=== PATIENT | male | born 1955 | race Caucasian/White ===

== ENCOUNTER 2024-02-07 05:50 | Observation (INO) ==
--- NOTE | 2023-11-30 10:18 | PAT Medication Instructions ---
Medication Instructions Date of Service November 30, 2023 Home Medications acetaminophen 500 mg tablet 1,000 mg PO BID amlodipine 10 mg tablet 10 mg PO QAM aspirin 81 mg tablet,delayed release 81 mg PO QAM atorvastatin 80 mg tablet 80 mg PO PM carvedilol 12.5 mg tablet 12.5 mg PO BID cholecalciferol (vitamin D3) 125 mcg (5,000 unit) tablet (Vitamin D3) 125 mcg PO QAM dapagliflozin propanediol 10 mg tablet 10 mg PO QPM dimethyl fumarate 240 mg capsule,delayed release (Tecfidera) 240 mg PO BID ezetimibe 10 mg tablet 10 mg PO HS furosemide 20 mg tablet 20 mg PO QAM gabapentin 800 mg tablet 800 mg PO BID insulin lispro 100 unit/mL subcutaneous cartridge (Humalog U-100 Insulin) 1 sli ding scale dose subcut USEASDIRECTD lisinopril 40 mg tablet 40 mg PO QAM metformin 1,000 mg tablet 1,000 mg PO BID multivitamin 1 tab PO QAM omega 7-bjr-avw-fish oil 1,000 mg (120 mg-180 mg) capsule (Fish Oil) 1 cap PO QPM semaglutide 2 mg/dose (8 mg/3 mL) subcutaneous pen injector (Ozempic) 2 mg subcut WK topiramate 50 mg tablet 50 mg PO BID tramadol 50 mg tablet 100 mg PO BID venlafaxine 75 mg tablet 75 mg PO QAM vitamin B complex 1 tab PO QAM STOP 7 days before surgery semaglutide 2 mg/dose (8 mg/3 mL) subcutaneous pen injector (Ozempic) 2 mg subcut WK STOP 3 days before surgery dapagliflozin propanediol 10 mg tablet 10 mg PO QPM ASK your prescriber and surgeon aspirin 81 mg tablet,delayed release 81 mg PO QAM dimethyl fumarate 240 mg capsule,delayed release (Tecfidera) 240 mg PO BID STOP taking 2 weeks before surgery (or as soon as possible if surgery is within 2 weeks) omega 5-mnn-qqu-fish oil 1,000 mg (120 mg-180 mg) capsule (Fish Oil) 1 cap PO QPM DO NOT take the morning of surgery cholecalciferol (vitamin D3) 125 mcg (5,000 unit) tablet (Vitamin D3) 125 mcg PO QAM furosemide 20 mg tablet 20 mg PO QAM insulin lispro 100 unit/mL subcutaneous cartridge (Humalog U-100 Insulin) 1 sliding scale dose subcut lisinopril 40 mg tablet 40 mg PO QAM metformin 1,000 mg tablet 1,000 mg PO BID multivitamin 1 tab PO QAM vitamin B complex 1 tab PO QAM Take morning of surgery With a small sip of water, OTHERWISE NOTHING TO EAT OR DRINK AFTER MIDNIGHT: acetaminophen 500 mg tablet 1,000 mg PO BID amlodipine 10 mg tablet 10 mg PO QAM carvedilol 12.5 mg tablet 12.5 mg PO BID gabapentin 800 mg tablet 800 mg PO BID topiramate 50 mg tablet 50 mg PO BID tramadol 50 mg tablet 100 mg PO BID venlafaxine 75 mg tablet 75 mg PO QAM Take evening before surgery acetaminophen 500 mg tablet 1,000 mg PO BID atorvastatin 80 mg tablet 80 mg PO PM carvedilol 12.5 mg tablet 12.5 mg PO BID ezetimibe 10 mg tablet 10 mg PO HS gabapentin 800 mg tablet 800 mg PO BID metformin 1,000 mg tablet 1,000 mg PO BID topiramate 50 mg tablet 50 mg PO BID tramadol 50 mg tablet 100 mg PO BID Other Notes If you have any questions please call us at [phone] or [phone] or [phone] or [phone]
--- NOTE | 2023-12-06 09:38 | Anesthesiology Consultation ---
Date of Service December 06, 2023 Assessment & Plan (1) Encounter for pre-operative examination: - Check BSG AM DOS - Infectious disease screening: Per assessment on 12/06/23: No known recent infectious disease contacts or current infectious disease symptoms. - Semaglutide instructions: Patient informed by PAT to stop 7 days prior to surgery- voiced understanding. DOS 12/15/23. Advised last dose to be 12/02/23. - Cardiology visit/note (11/24/23): "..from a cardiovascular standpoint low risk for upcoming surgery.. Patient is cleared for scheduled surgery" - Patient acceptable risk for surgery pending surgeon-ordered PCP preop evaluation (Yobani Yang MAST MAKER, appt 12/08). Chart Review Chart Review: Patient seen in Pre Admission Testing Teaching & Discussion Pre-Anesthesia Teaching/Discussion Notes: Instructed NPO after midnight before surgery,except medications with 15 cc of water. Medication instructions provided according to the PAT guidelines. History Surgery Operation Date: 12/15/23 07:45 Proposed Procedures p L3-L4 Decomrpession, Spinal Cord Monitoring - Bakari Sampson DO Height/Weight Height: 5 ft 11 in Weight: 138.9 kg Allergies Allergy/AdvReac Type Severity Reaction Status Date / Time No Known Allergies Allergy Verified 11/24/23 13:15 Medications Home Medications Medication Instructions Recorded Confirmed Last Taken acetaminophen 500 mg tablet 1,000 mg PO BID 11/24/23 11/24/23 Unknown amlodipine 10 mg tablet 10 mg PO QAM 11/24/23 11/24/23 Unknown aspirin 81 mg tablet,delayed 81 mg PO QAM 11/24/23 11/24/23 Unknown release atorvastatin 80 mg tablet 80 mg PO PM 11/24/23 11/24/23 Unknown carvedilol 12.5 mg tablet 12.5 mg PO BID 11/24/23 11/24/23 Unknown cholecalciferol (vitamin D3) 125 125 mcg PO QAM 11/24/23 11/24/23 Unknown mcg (5,000 unit) tablet (Vitamin D3) dapagliflozin propanediol 10 mg 10 mg PO QPM 11/24/23 11/24/23 Unknown tablet dimethyl fumarate 240 mg 240 mg PO BID 11/24/23 11/24/23 Unknown capsule,delayed release (Tecfidera) ezetimibe 10 mg tablet 10 mg PO HS 11/24/23 11/24/23 Unknown furosemide 20 mg tablet 20 mg PO QAM 11/24/23 11/24/23 Unknown gabapentin 800 mg tablet 800 mg PO BID 11/24/23 11/24/23 Unknown insulin lispro 100 unit/mL 1 sliding scale dose subcut 11/24/23 11/24/23 Unknown subcutaneous cartridge (Humalog USEASDIRECTD U-100 Insulin) lisinopril 40 mg tablet 40 mg PO QAM 11/24/23 11/24/23 Unknown metformin 1,000 mg tablet 1,000 mg PO BID 11/24/23 11/24/23 Unknown multivitamin 1 tab PO QAM 11/24/23 11/24/23 Unknown omega 3-mzi-fvh-fish oil 1,000 mg 1 cap PO QPM 11/24/23 11/24/23 Unknown (120 mg-180 mg) capsule (Fish Oil) semaglutide 2 mg/dose (8 mg/3 mL) 2 mg subcut WK 11/24/23 11/24/23 11/18/23 subcutaneous pen injector (Ozempic) topiramate 50 mg tablet 50 mg PO BID 11/24/23 11/24/23 Unknown tramadol 50 mg tablet 100 mg PO BID 11/24/23 11/24/23 Unknown venlafaxine 75 mg tablet 75 mg PO QAM 11/24/23 11/24/23 Unknown vitamin B complex 1 tab PO QAM 11/24/23 11/24/23 Unknown Past Medical History Medical History Aortic stenosis "Moderate" on 2021 echo per available cardio records CAD (coronary artery disease) 2017 > stents x 2 Follows with cardio/Dr. Chadwick Adan (provider just moved from [facility] to [place]) Depression with anxiety Diabetes mellitus, type 2 History of COVID-19 01/2020 > PE HTN (hypertension) Hx pulmonary embolism In setting of Covid-19 (01/2020) Morbid obesity Multiple sclerosis 1997, stable Sleep apnea No device Uses self-applied continuous glucose monitoring device FreeStyle Rene 2 and V-Go for administration Exercise / Class Metabolic Activity III < 4 Walking/Shop/Light housework (uses cane PRN) Past Surgical History Surgical History Hx of cardiac catheterization 2017 > stents x 2 Hx of colonoscopy Hx of esophagogastroduodenoscopy Hx of tonsillectomy Hx of total knee replacement right Past Anesthesia History No Hx of Anesthesia Complications and No Family Hx of Anesthesia Complications History of PONV No Hx of PONV and No Hx of Motion Sickness Social History Smoking Status: Never smoker Do You Dip or Chew Tobacco: No Hx Alcohol Use: No Hx Substance Use: No substance use type: does not use Review of Systems Patient denies chest pain, shortness of breath, dyspnea on exertion, fever, chills, cough, wheezing, palpitations. Physical Exam Vital Signs BP 106/63 P 63 TEMP 97.5 SP02 96%RA RESP 16 Physical Full cervical extension range of motion. Full TMJ range of motion. TMD > 3.5 finger breaths Mallampati Score I Dentition: upper/lower full dentures ("doesn't wear") Lungs: clear throughout to auscultation Cardiac: regular rate and rhythm, no murmurs noted Spine: normal Carotid arteries: negative bruit Extremities: no LE edema Lab Results Anesthesia Preop Results Results Anesthesia Widget: WBC 8.22 K/ul (4.8-10.8) 12/06/23 Hgb 13.6 g/dl (14.0-18.0) L 12/06/23 Hct 40.3 % (42.0-52.0) L 12/06/23 Plt 232 K/uL (130-400) 12/06/23 Na 139 mmol/L (136-145) 12/06/23 K 3.7 mmol/L (3.5-5.1) 12/06/23 Cl 105 mmol/L (98-107) 12/06/23 CO2 27 mmol/L (21-32) 12/06/23 BUN 14 mg/dl (6-23) 12/06/23 Creat 0.90 mg/dl (0.6-1.4) 12/06/23 Glucose Level 99 mg/dl (70-99(Fasting)) 12/06/23 PT 10.5 Seconds (9.0-12.0) 12/06/23 PTT 27 Seconds (21-31) 12/06/23 INR 1.0 (0.9-1.1) 12/06/23 HA1c 7.3 % (4.5-5.6) H 12/06/23 Blood Type O Positive 12/06/23 Antibody Screen NEGATIVE 12/06/23 Testing Electrocardiogram Date: 11/24/23 SR at 70bpm. No change from 01/29/2023 per churn driller helper comparison. Chest X-Ray Date: 12/06/23 FINDINGS: PA and lateral chest radiographs are obtained. No prior studies are available for comparison at the time of dictation. The heart is enlarged noting atherosclerotic calcification of the thoracic aorta. The pulmonary vasculature is noncongested. Chronic interstitial thickening this is similar to previous. There is mild bibasilar scarring/atelectasis. The lungs and pleural spaces are otherwise clear. There is no pneumothorax. The skeletal structures are osteopenic. The bony thorax appears intact. IMPRESSION: Cardiomegaly with no active disease in the chest.
[~2024-02-07 05:50] MED LIST: ACETAMINOPHEN 500 MG TAB PO SCH; CeleBREX 200 MG CAP PO SCH; GABAPENTIN 300 MG CAP PO SCH; LR 15ML/HR IV SCH; LR 60ML/HR IV SCH; ceFAZolin 3000MG 3,000 MG/72.5 ML BAG IV SCH
[2024-02-07] MEDS: LR 60ML/HR IV SCH (06:47)
[2024-02-07] MEDS: GABAPENTIN 300 MG CAP PO SCH (06:47)
[2024-02-07] MEDS: ACETAMINOPHEN 500 MG TAB PO SCH (06:51)
[2024-02-07] MEDS: LR 15ML/HR IV SCH (06:51)
[2024-02-07] MEDS: CeleBREX 200 MG CAP PO SCH (06:51)
[2024-02-07] MEDS ORDERED: LIDOCAINE 2% 2 ML VIAL/AMP(20MG/ML) INFIL ONE ×2 (06:54)
[2024-02-07] MEDS ORDERED: MIDAZOLAM HCL 1 MG/ML 2ML VIAL ONE (06:54)
[2024-02-07] MEDS ORDERED: PROPOFOL IV EMULSION 10 MG/ML 20 ML VIAL IV ONE (06:54)
[2024-02-07] MEDS ORDERED: ONDANSETRON INJ 2 MG/ML 2 ML VIAL ONE (06:54)
[2024-02-07] MEDS ORDERED: ROCURONIUM BROMIDE 10 MG/ML 5 ML VIAL IV ONE ×5 (06:54)
[2024-02-07] MEDS ORDERED: DEXAMETHASONE SOD INJ 4 MG/ML VIAL ONE (06:54)
[2024-02-07] MEDS ORDERED: fentaNYL citrate PF 100 MCG/2 ML VIAL ONE (06:54)
--- NOTE | 2024-02-07 07:39 | History & Physical Bridge Note ---
Date of Service February 07, 2024 History & Physical Bridge Note I have examined the patient, reviewed the History & Physical and in the interval since the performance of the History & Physical I have noted the following changes of clinical significance: no changes noted
--- NOTE | 2024-02-07 07:40 | History & Physical Report ---
Date of Service February 07, 2024 Assessment & Plan (1) Neurogenic claudication due to lumbar spinal stenosis: Plan: L3-L4 decompression History of Present Illness Chief Complaint: Back and leg pain Primary Care Provider: NO PCP This is a 60-year-old male who presents for chronic persistent back and leg pain after failing course of nonoperative care is here for surgical intervention. Allergies Allergy/AdvReac Type Severity Reaction Status Date / Time No Known Allergies Allergy Verified 02/07/24 06:31 Home Medications Medication Instructions Recorded Confirmed Type acetaminophen 500 mg tablet 1,000 mg PO BID PRN Pain 11/24/23 02/07/24 History amlodipine 10 mg tablet 10 mg PO QAM 11/24/23 02/07/24 History aspirin 81 mg tablet,delayed 81 mg PO QAM 11/24/23 02/07/24 History release atorvastatin 80 mg tablet 80 mg PO PM 11/24/23 02/07/24 History carvedilol 12.5 mg tablet 12.5 mg PO BID 11/24/23 02/07/24 History cholecalciferol (vitamin D3) 125 125 mcg PO QAM 11/24/23 02/07/24 History mcg (5,000 unit) tablet (Vitamin D3) dapagliflozin propanediol 10 mg 10 mg PO QPM 11/24/23 02/07/24 History tablet (Farxiga) dimethyl fumarate 240 mg 240 mg PO BID 11/24/23 02/07/24 History capsule,delayed release (Tecfidera) ezetimibe 10 mg tablet 10 mg PO HS 11/24/23 02/07/24 History furosemide 20 mg tablet 20 mg PO QAM 11/24/23 02/07/24 History gabapentin 800 mg tablet 800 mg PO BID 11/24/23 02/07/24 History insulin lispro 100 unit/mL 1 sliding scale dose subcut 11/24/23 02/07/24 History subcutaneous cartridge (Humalog USEASDIRECTD U-100 Insulin) lisinopril 40 mg tablet 40 mg PO QAM 11/24/23 02/07/24 History metformin 1,000 mg tablet 1,000 mg PO BID 11/24/23 02/07/24 History multivitamin 1 tab PO QAM 11/24/23 02/07/24 History omega 5-sva-adj-fish oil 1,000 mg 1 cap PO QPM 11/24/23 02/07/24 History (120 mg-180 mg) capsule (Fish Oil) topiramate 50 mg tablet 50 mg PO BID 11/24/23 02/07/24 History tramadol 50 mg tablet 100 mg PO BID 11/24/23 02/07/24 History venlafaxine 75 mg tablet 75 mg PO QAM 11/24/23 02/07/24 History vitamin B complex 1 tab PO QAM 11/24/23 02/07/24 History Past Med/Surg History Problem List (Updated 02/07/24 @ 07:40 by Bakari Sampson DO) Neurogenic claudication due to lumbar spinal stenosis Medical History (Updated 02/07/24 @ 07:40 by Bakari Sampson DO) Aortic stenosis "Moderate" on 2021 echo per available cardio records CAD (coronary artery disease) 2017 > stents x 2 Follows with cardio/Dr. Chadwick Adan (provider just moved from [facility] to [place]) Morbid obesity Multiple sclerosis 1997, stable Uses self-applied continuous glucose monitoring device FreeStyle Rene 2 and V-Go for administration Diabetes mellitus, type 2 Depression with anxiety HTN (hypertension) Hx pulmonary embolism In setting of Covid-19 (01/2020) History of COVID-19 01/2020 > PE *resolved Sleep apnea No device Surgical History History of tooth extraction Hx of tonsillectomy Hx of total knee replacement right Hx of esophagogastroduodenoscopy Hx of colonoscopy Hx of cardiac catheterization 2017 > stents x 2 (followed by Chadwick Adan) Family History (Updated 02/03/24 @ 09:10 by Rachelle Muñoz RN) Other No family history of adverse response to anesthesia Social History Smoking Status: Never smoker Second Hand Exposure: Yes (as a child); Do You Dip or Chew Tobacco: No; Tobacco Cessation Education Requested by Patient: No Hx Alcohol Use: No Preferred Language: Mongolian Communication Ability: Effective Category Director Required: No Beliefs That Will Affect Care: None Current Living Situation: Spouse Other Information That Helps Us Care for You: No Feels Safe at Home: Yes Safety Concerns: Feels Safe At This Time Assistive Devices: Cane, Denture - Upper, Denture - Lower and Glasses Assistive Devices Comment: "usually do not wear dentures" Physical Exam Physical Exam: Patient is alert and oriented heart regular in rhythm Lungs clear Results & Data Results & Data Vital Signs (Past 12 Hours) Vital Signs Temp Pulse Resp BP Pulse Ox O2 Del Method 02/07/24 06:24 36.5 C 55 L 20 119/62 93 Room Air
[2024-02-07] MEDS ORDERED: ePHEDrine sulfate 50 MG/ML AMP IV PRN (07:50)
[2024-02-07] MEDS ORDERED: ONDANSETRON INJ 2 MG/ML 2 ML VIAL IV PRN ×2 (07:50→09:51)
[2024-02-07] MEDS ORDERED: HYDROmorphone INJ 2 MG/ML SYR/VIAL IV PRN (07:50)
[2024-02-07] MEDS ORDERED: PROMETHAZINE HCL 6.25 MG in SODIUM CHLORIDE 0.9% 50 ML IV PRN (07:50)
[2024-02-07] MEDS: ceFAZolin 3000MG 3,000 MG/72.5 ML BAG IV SCH (07:50)
[2024-02-07] MEDS ORDERED: ATROPINE SULFATE 0.1 MG/ML 10ML SYR IV PRN (07:50)
[2024-02-07] MEDS ORDERED: SUGAMMADEX SODIUM 200 MG/2 ML VIAL IV ONE (08:09)
[2024-02-07] MEDS ORDERED: ePHEDrine sulfate 50 MG/5 ML SYR ONE (08:12)
[2024-02-07] MEDS ORDERED: PHENYLEPHRINE HCL 10 MG/ML VIAL ONE ×2 (08:12)
[2024-02-07] MEDS: BUPIVACAINE/EPINEPHRINE 0.5% MPF 1:200,000 30 ML VIAL ONE (08:14)
[2024-02-07] MEDS: ceFAZolin 330 MG/ML 1 GM VIAL ONE (08:36)
[2024-02-07] MEDS: FLOSEAL HEMOSTATIC MATRIX 10ML TOP ONE (08:36)
--- NOTE | 2024-02-07 08:47 | Operative Report ---
Post Operative Report Pre & Post Diagnosis Operation Date: 02/07/24 07:45 Pre-Op Diagnosis: #1 neurogenic claudication due to lumbar spinal stenosis #2 epidural lipomatosis #3 morbid obesity Post-Op Diagnosis: Same I identified the patient and participated in the time-out.: Yes Procedure Operation Date: 02/07/24 07:45 Actual Procedures #1 lumbar decompression with bilateral medial facetectomies with removal of epidural lipomatosis L3-L4. #2 application of versa wrap over the exposed dura at L3-L4. Surgeon Bakari Sampson, DO Ampoule Washing Machine Operator Katey Cool Estimated Blood Loss 100 Findings See Below The patient is 5 foot 11 weighing over 138 kg with a BMI in excess of 42. The patient's body mass did contribute to significant technical difficulty with positioning exposure and the procedure itself adding at least 50% increased operative time. Specimens None Indications This is a 68-year-old male presents problems diagnosis of failed course of nonoperative care is here for surgical invention. Description of Procedure Patient was met with identified informed consent obtained. Patient was then taken to the operative suite underwent intubation placed in a prone position on the Enrique table atop the Anjel frame. All bony prominences well-padded eyes inspected to ensure no external pressure placed upon the. This point the lumbar spine was prepped and draped in normal sterile fashion. With assistance of fluoroscopy notified L3-L4 disc space. Sharp dissection with assistance of Bovie cautery form down to and exposing the lamina of L3. Then performed a midline decompression with bilateral medial facetectomies and evacuation of epidural lipomatosis. This created significant decompression. Versa wrap was then placed over the exposed dura. 10 round SARITHA drain inserted. Incision closed with 1 Vicryl the fascia 2-0 Vicryl subcutaneously and 4 Monocryl for final skin closure. Steri-Strips sterile dressing placed. Patient waken taken PACU stable condition. Please note Katey Cool was present out the entire procedure involved patient positioning complex portions of the surgery and final skin closure. Im ordering 20 grams of Triple [place] Collagen Powder ([employer] [id number]) to treat an incision wound that was caused by a spine procedure. The incision is approximately 2 cm(W) x 4 cm(L) into the joint (D) in size and is a full thickness wound. Triple [place] collagen comes in 1 gram packets so 20 packets were ordered. Given the size of the wound, with light to moderate exudate I chose to order a 20 day supply. The patient will be provided instructions for proper application of the collagen wound kit. The patient will be asked to apply the collagen powder daily and then cover it with sterile dressings dispensed. Collagen was selected as I expect the collagen to attract monocytes and fibroblasts, act as a sacrificial substrate for MMPs, and ultimately proved a matrix for tissue and vessel growth. The collagen will act as a primary dressing in this scenario. It is medically necessary for proper healing of these wounds to improve bioavailability and contact with each wound surface, this is also to help prevent infection of wounds and promote healing ultimately leading to a better healing outcome and limit the risk of infection. I attest to the content of the Intraoperative Record and any orders documented therein. Any exceptions are noted below.
--- NOTE | 2024-02-07 09:04 | Fluoroscopy Report ---
FL lumbar spine 2-3V CLINICAL HISTORY: L3-L4 DECOMPRESSION AND FUSION COMPARISON STUDY: None. FLUOROSCOPY TIME: 3 seconds. Ka,r: 3.09 mGy FLUOROSCOPIC IMAGES: 1 FINDINGS: Single lateral intraoperative fluoroscopic image demonstrates surgical instrument directed over the posterior elements of L4. Linear radiodensity within the operative bed is noted. IMPRESSION: Single lateral intraoperative fluoroscopic image demonstrating surgical instrument direc leila over the posterior elements of L4. ACT 112: Negative or not required by law. Electronically signed by: Yemi Ann M.D. 02/07/2024 9:02 AM
[2024-02-07] MEDS: fentaNYL citrate PF 100 MCG/2 ML VIAL IV PRN (09:22)
[2024-02-07] MEDS ORDERED: HYDROmorphone INJ 0.5 MG/0.5 ML SYR IV PRN (09:51)
[2024-02-07] MEDS ORDERED: MAGNESIUM HYDROXIDE SUSP 30 ML UDC PO PRN (09:51)
[2024-02-07] MEDS ORDERED: FAMOTIDINE 20 MG TAB PO PRN (09:51)
[2024-02-07] MEDS ORDERED: SOD PHOSPHATE/SOD BIPHOSPHATE ENEMA 132 ML BTL PR PRN (09:51)
[2024-02-07] MEDS ORDERED: LORazepam 2 MG/1 ML VIAL IV PRN (09:51)
[2024-02-07] MEDS ORDERED: traMADol HCL 50 MG TABLET PO PRN (09:51)
[2024-02-07] MEDS ORDERED: PROMETHAZINE 12.5 MG/50.5 ML BAG IV PRN (09:51)
[2024-02-07] MEDS ORDERED: METOCLOPRAMIDE HCL INJ 5 MG/ML 2 ML VIAL IV PRN (09:51)
[2024-02-07] MEDS ORDERED: diphenhydrAMINE Capsule 25 MG CAP PO PRN (09:51)
[2024-02-07] MEDS ORDERED: ONDANSETRON 4 MG OD TAB PO PRN (09:51)
[2024-02-07] MEDS ORDERED: DO NOT ADMINISTER FLU VACCINE PRN (09:51)
[2024-02-07] MEDS ORDERED: hydrOXYzine HCl 25 MG TAB PO PRN (09:51)
[2024-02-07] MEDS ORDERED: NALOXONE HCL 0.4 MG/1 ML VIAL/CARP IV PRN (09:51)
[2024-02-07] MEDS ORDERED: LORazepam 0.5 MG TAB PO PRN (09:51)
[2024-02-07] MEDS ORDERED: DO NOT ADMINISTER PNEUMOCOCCAL VACCINE PRN (09:51)
[2024-02-07] MEDS ORDERED: ACETAMINOPHEN 500 MG TAB PO PRN (09:51)
[2024-02-07] MEDS ORDERED: ACETAMINOPHEN 1,000 MG/100 ML VIAL IV PRN (09:51)
[2024-02-07] MEDS ORDERED: PHARMACY GLYCEMIC MGMT CONSULT PRN (09:51)
[2024-02-07] MEDS ORDERED: bisacodyL 10 MG SUPP PR PRN (09:51)
[2024-02-07] MEDS ORDERED: ALUMINUM/MAGNESIUM SUSP 30 ML UDC PO PRN (09:51)
--- NOTE | 2024-02-07 10:18 | Hospitalist Consultation ---
Date of Consultation February 07, 2024 Assessment & Plan (1) Neurogenic claudication due to lumbar spinal stenosis: (2) Aortic stenosis: (3) CAD (coronary artery disease): (4) HTN (hypertension): (5) Hx pulmonary embolism: (6) Diabetes mellitus, type 2: (7) Multiple sclerosis: (8) Morbid obesity: (9) Sleep apnea: (10) Depression with anxiety: Plan Status post lumbar decompression surgery from L3-L4 by Dr. Sampson on 02/07/2024 Neurogenic claudication due to lumbar spinal stenosis -Postop day #0 -Trend a.m. labs to monitor for acute blood loss anemia, last hemoglobin 13.6 on 12/06/2023 - Pain management, bowel regimen and DVT ppx per the primary team - PT/OT consults, pt is planning on outpatient therapy upon discharge home CAD HTN HLD -Continue home medications including carvedilol, atorvastatin, aspirin, Lasix, lisinopril, ezetimibe DM type II -ISS with Accu-Cheks ACHS while here -Continue heart healthy diabetic diet -Patient is on metformin, semaglutide, Farxiga as outpatient -Glycemic pharmacy is consulted by primary team Multiple sclerosis -Has been chronic and stable since 1997, Does not take any biological agents, reports that his 3 children have varying degrees of MS. Morbid obesity -BMI of 43, will benefit from diet and exercise status post surgical procedure, encouraged weight loss for wound healing/joint offloading Sleep apnea -Patient reports that he does not use CPAP at bedtime, no needs for baseline O2 during the day Depression with anxiety -Continue on venlafaxine, gabapentin, topiramate DVT ppx: teds, scds Lines: 2 PIV, SARITHA drain FEN/GI: Heart healthy/DM CODE: Full code Dispo: From home, likely to remain in the hospital x 1-2 days Thank you for involving us in the care of Mr. Tubbs. If you have any questions or concerns please do not hesitate to call. At this time medicine will follow along. A total of 45 minutes were spent with greater than 50% of that time face to face with the patient, personally reviewing all current laboratories, imaging studies, past medication reconciliation, outpatient chart review, and discussion with specialists to collaborate care for the patient with attending. Please see attending documentation for corrections and/or additions. Supervising Physician Co-Signing Physician Notes 68 yo M w/ PMH of T2DM, HTN, HLD, aortic stenosis, CAD s/p stents x 2 in 2017 is seen as medical consult after lumber spine Sx. Pt on 2L NC O2, NAD, denies flu like illness in the recent past. Reports improvement in ble radicular s/s, operative site pain under control. pain mx. pt/ot when able. DVT px per primary team. On exam: GENERAL: Alert and oriented x3. NAD, on 2L NC O2. Obese class III. HEENT: No pallor, no icterus. Pupils equal, round and reactive to light. Oral mucosa moist. NECK: No JVD, no neck masses. HEART: S1 and S2 heard. Regular rate and rhythm. No murmur, no gallop. RESPIRATORY SYSTEM: Normal AP diameter. No accessory muscle use. No wheezing, no crackles. ABDOMEN: Soft, bowel sounds present, nontender, no distention. CENTRAL NERVOUS SYSTEM: No facial droop. Speech is clear. Obeys simple commands. Moves extremities. EXTREMITIES: No edema, no erythema seen. Low back w/ clean dressing. SARITHA drain w/ mod serosanguinous output. Distal NV status wnl. I have seen and examined the patient and have discussed the case with the provider above. I agree with the assessment and plan as stated. time spent: 20 min. History of Present Illness Reason for Consultation: Medical management Requesting Physician: Dr. Sampson Attending Physician: Bakari Sampson, DO History of Present Illness This is a 68-year-old male with PMHx of DM type II, HTN, HLD, aortic stenosis, CAD with history of 2 cardiac stents in 2016, history of PE in the setting of COVID-19 infection in January 2020, multiple sclerosis, sleep apnea, depression, anxiety, morbid obesity with BMI of 43 who presents for routine elective lumbar decompression with bilateral medial facetectomies with removal of epidural lipomatosis from L3-L4 performed by Dr. Sampson on 02/07/2024. Patient reports that he has no pain, no numbness, doing well status post surgical procedure. He had last bowel movement yesterday. Patient tolerated complete lunch without any difficulty. He has not been out of bed or urinated since surgical procedure. Patient lives at home with his in [facility]. Plans to participate in PT/OT pending recommendations after discharge home. Allergies Allergy/AdvReac Type Severity Reaction Status Date / Time No Known Allergies Allergy Verified 02/07/24 06:31 Home Medications Medication Instructions Recorded Confirmed Type acetaminophen 500 mg tablet 1,000 mg PO BID PRN Pain 11/24/23 02/07/24 History amlodipine 10 mg tablet 10 mg PO QAM 11/24/23 02/07/24 History aspirin 81 mg tablet,delayed 81 mg PO QAM 11/24/23 02/07/24 History release atorvastatin 80 mg tablet 80 mg PO PM 11/24/23 02/07/24 History carvedilol 12.5 mg tablet 12.5 mg PO BID 11/24/23 02/07/24 History cholecalciferol (vitamin D3) 125 125 mcg PO QAM 11/24/23 02/07/24 History mcg (5,000 unit) tablet (Vitamin D3) dapagliflozin propanediol 10 mg 10 mg PO QPM 11/24/23 02/07/24 History tablet (Farxiga) dimethyl fumarate 240 mg 240 mg PO BID 11/24/23 02/07/24 History capsule,delayed release (Tecfidera) ezetimibe 10 mg tablet 10 mg PO HS 11/24/23 02/07/24 History furosemide 20 mg tablet 20 mg PO QAM 11/24/23 02/07/24 History gabapentin 800 mg tablet 800 mg PO BID 11/24/23 02/07/24 History insulin lispro 100 unit/mL 1 sliding scale dose subcut 11/24/23 02/07/24 History subcutaneous cartridge (Humalog USEASDIRECTD U-100 Insulin) lisinopril 40 mg tablet 40 mg PO QAM 11/24/23 02/07/24 History metformin 1,000 mg tablet 1,000 mg PO BID 11/24/23 02/07/24 History multivitamin 1 tab PO QAM 11/24/23 02/07/24 History omega 8-eil-okq-fish oil 1,000 mg 1 cap PO QPM 11/24/23 02/07/24 History (120 mg-180 mg) capsule (Fish Oil) topiramate 50 mg tablet 50 mg PO BID 11/24/23 02/07/24 History tramadol 50 mg tablet 100 mg PO BID 11/24/23 02/07/24 History venlafaxine 75 mg tablet 75 mg PO QAM 11/24/23 02/07/24 History vitamin B complex 1 tab PO QAM 11/24/23 02/07/24 History oxycodone 5 mg tablet 5 mg PO Q6H PRN pain #30 tabs 02/07/24 Rx Patient History Medical History (Updated 02/07/24 @ 07:40 by Bakari Sampson DO) Aortic stenosis "Moderate" on 2021 echo per available cardio records CAD (coronary artery disease) 2017 > stents x 2 Follows with cardio/Dr. Chadwick Adan (provider just moved from [facility] to [place]) Morbid obesity Multiple sclerosis 1997, stable Uses self-applied continuous glucose monitoring device FreeStyle Rene 2 and V-Go for administration Diabetes mellitus, type 2 Depression with anxiety HTN (hypertension) Hx pulmonary embolism In setting of Covid-19 (01/2020) History of COVID-19 01/2020 > PE *resolved Sleep apnea No device Surgical History History of tooth extraction Hx of tonsillectomy Hx of total knee replacement right Hx of esophagogastroduodenoscopy Hx of colonoscopy Hx of cardiac catheterization 2017 > stents x 2 (followed by Cahdwick Adan) Family History (Updated 02/03/24 @ 09:10 by Rachelle Muñoz RN) Other No family history of adverse response to anesthesia Social History Smoking Status: Never smoker Second Hand Exposure: Yes (as a child); Do You Dip or Chew Tobacco: No; Tobacco Cessation Education Requested by Patient: No Hx Alcohol Use: No Preferred Language: Maldivian Communication Ability: Effective Labeler Required: No Beliefs That Will Affect Care: None Current Living Situation: Spouse Other Information That Helps Us Care for You: No Feels Safe at Home: Yes Safety Concerns: Feels Safe At This Time Assistive Devices: Cane, Denture - Upper, Denture - Lower and Glasses Assistive Devices Comment: "usually do not wear dentures" Review of Systems Review of Systems: Constitutional: No fever, sweats or chills Eyes: No diplopia, no worsening or blurred vision ENT: normal hearing, no trouble swallowing Respiratory: No cough, sputum, dyspnea at rest or on exertion Cardiovascular: No chest pain, tightness or palpitations Abdomen: No pain, nausea, vomiting, diarrhea or constipation Musculoskeletal: No joint pain, calf pain, swelling Neurologic: No weakness, numbness/tingling, or balance problems Psychiatric: No anxiety or depression Skin: No rash or itch Physical Exam Physical Exam: General: awake, alert, no apparent distress, morbidly obese white male, BMI 43 Head: Normocephalic, atraumatic ENT: PERRL, EOMI, no pharyngeal exudate, mucous membranes moist Chest: Clear to auscultation, on room air, no adventitious breath sounds Cardiac: Regular rate and rhythm, no murmur, no JVD, normal peripheral pulses, good capillary refill Abdominal: NABS x 4 quadrants, soft, nondistended, nontender to palpation, no rebound or guarding Back: Cannot visualize the dressing due to body habitus, position in bed Extremities: Normal inspection, no peripheral edema or erythema, calfs nontender to palpation Psych: Normal mood and affect Neuro: AAO x 3, strength intact bilaterally and rated 5/5, no motor deficits, speech is clear, no peripheral sensory deficits Results & Data Results & Data Vital Signs (Past 12 Hours) Vital Signs Temp Pulse Pulse Resp BP Pulse Ox O2 Del Method 02/07/24 09:45 36.4 C L 55 L 16 151/86 H 97 Nasal Cannula 02/07/24 09:40 36.4 C L 58 L 17 148/92 H 98 Nasal Cannula 02/07/24 09:30 54 L 16 151/95 H 96 Nasal Cannula 02/07/24 09:20 52 L 16 147/97 H 95 Nasal Cannula 02/07/24 09:10 57 L 17 135/74 95 Oxymask 02/07/24 09:00 36.0 C L 61 17 142/72 H 95 Oxymask 02/07/24 06:24 36.5 C 55 L 20 119/62 93 Room Air O2 Flow Rate 02/07/24 09:45 2 02/07/24 09:40 4 02/07/24 09:30 4 02/07/24 09:20 4 02/07/24 09:10 5 02/07/24 09:00 5 02/07/24 06:24 Laboratory Results 02/07/24 02/07/24 02/07/24 09:13 09:04 06:21 POC Glucose 209 H 202 H 173 H Diagnostic Findings 11/11/24 11/11/24 11/11/24 11:08 09:13 09:04 POC Glucose 207 H 209 H 202 H 02/07/24 06:21 POC Glucose 173 H
[2024-02-07] MEDS ORDERED: GLUCOSE 10 TAB/TUBE PO PRN (10:45)
[2024-02-07] MEDS ORDERED: GLUCOSE 40% GEL 15 GM TUBE PO PRN (10:45)
[2024-02-07] MEDS ORDERED: DEXTROSE 50% 50 ML SYRINGE IV PRN (10:45)
[2024-02-07] MEDS ORDERED: CARBOHYDRATES FOR HYPOGLYCEMIA PO PRN (10:45)
[2024-02-07] MEDS ORDERED: GLUCAGON FOR INJ 1 MG VIAL SQ PRN (10:45)
--- NOTE | 2024-02-07 10:51 | Anesthesiology Progress Note ---
Date of Service February 07, 2024 Anesthesia Post Procedure Vital Signs Vital Signs: Temp Pulse Pulse Resp BP Pulse Ox O2 Del Method 02/07/24 10:45 63 18 145/81 H 95 Nasal Cannula 02/07/24 10:13 66 18 144/80 H 98 Nasal Cannula 02/07/24 09:45 36.4 C L 55 L 16 151/86 H 97 Nasal Cannula 02/07/24 09:40 36.4 C L 58 L 17 148/92 H 98 Nasal Cannula 02/07/24 09:30 54 L 16 151/95 H 96 Nasal Cannula 02/07/24 09:20 52 L 16 147/97 H 95 Nasal Cannula 02/07/24 09:10 57 L 17 135/74 95 Oxymask 02/07/24 09:00 36.0 C L 61 17 142/72 H 95 Oxymask 02/07/24 06:24 36.5 C 55 L 20 119/62 93 Room Air O2 Flow Rate 02/07/24 10:45 2 02/07/24 10:13 2 02/07/24 09:45 2 02/07/24 09:40 4 02/07/24 09:30 4 02/07/24 09:20 4 02/07/24 09:10 5 02/07/24 09:00 5 02/07/24 06:24 Pain Intensity Lower Back: Pain Intensity: 4 Transfer of Care Handoff Completed per policy Notes Mental Status: alert / awake / arousable and participated in evaluation Patient Amnestic to Procedure: Yes Nausea / Vomiting: adequately controlled Pain: adequately controlled Airway Patency, RR, SpO2: stable & adequate BP & HR: stable & adequate Hydration State: stable & adequate Anesthetic Complications: no major complications apparent
[2024-02-07] MEDS: HYDROmorphone INJ 1 MG/ML SYRINGE IV PRN (10:56)
[2024-02-07] MEDS: amLODIPine BESYLATE 5 MG TAB PO SCH (11:38)
[2024-02-07] MEDS: carvediloL 12.5 MG TAB PO SCH (11:38)
[2024-02-07] MEDS: TOPIRAMATE 50 MG TAB PO SCH (11:39)
[2024-02-07] MEDS: MULTIVITAMIN TAB PO SCH (11:39)
[2024-02-07] MEDS: CHOLECALCIFEROL 125 MCG (5,000 UNITS) TAB PO SCH (11:39)
[2024-02-07] MEDS: GABAPENTIN 800 MG TAB PO SCH (11:39)
[2024-02-07] MEDS: VENLAFAXINE HCL XR 75 MG CAPXR PO SCH (11:40)
[2024-02-07] MEDS: VITAMIN B COMPLEX TAB PO SCH (11:45)
[2024-02-07] MEDS: lisinopril 40 MG TAB PO SCH (11:45)
[2024-02-07] MEDS: FUROSEMIDE 20 MG TAB PO SCH (11:45)
[2024-02-07] MEDS: INSULIN ASPART PER UNIT CHARGE SC SCH (12:56)
[2024-02-07] MEDS: LANTUS PER UNIT CHARGE SC ONE (12:57)
[2024-02-07] MEDS: ASPIRIN 81 MG ECTAB PO SCH (13:05)
--- NOTE | 2024-02-07 13:48 | Pharmacy Report ---
Pharmacy Glycemic Short Note 2 - Date of Service February 07, 2024 - Glycemic Short BSG Results (Last 24 hours): 02/07/24 02/07/24 02/07/24 06:21 09:04 09:13 POC Glucose 173 H 202 H 209 H 02/07/24 11:08 POC Glucose 207 H OUTPATIENT ANTIDIABETIC REGIMEN: * Farxiga 10mg po daily * V-Go 40 (max 80 units of lispro daily) HbA1c 7.3% on 12/06/23 ASSESSMENT: * 68 year old male admitted 02/06 for L3-L4 lumbar decompression surgery (POD #0). Pharmacy was consulted for glycemic monitoring postop. * He was given dexamethasone 4mg iv x 1 preop. BSG this morning was 202mg/dL and herman to 207mg/dL at lunch time today. * As an outpatient, he receives 40 units of lispro insulin daily by continuous subcutaneous infusion via the V-Go 40. (also administers on-demand bolus doses via this device for mealtime coverage) * Since his BSG was already elevated postop and he received steroids, Lantus 40units SQ x 1 was ordered this afternoon. Tomorrow morning, lantus 20units bid will be started (equivalent to his home basal requirements). * Weight based bolus dosing (using adjusted body weight) with a stress between 2 and 3 was started with lunch today PLAN FOR INPATIENT GLYCEMIC CONTROL: * Hold outpatient diabetes medications * Basal insulin * Lantus 40 units SQ x 1 post op, then 20 units SQ bid starting 11/12 AM * Bolus insulin * NovoLog per scale ACHS or Q6hrs while NPO * Goal Range: Low 110 mg/dL - High 140 mg/dL * Correction Factor: 20 mg/dL/unit * Nutritional / Prandial insulin per carb ratio of 1 unit per 8 grams CHO consumed
[2024-02-07] MEDS: ceFAZolin 2000MG 2,000 MG/15 ML SYR IV SCH (14:54)
[2024-02-07] MEDS: oxyCODONE HCL IR 5 MG TAB (IMMEDIATE RELEASE) PO PRN (17:54)
[2024-02-07] MEDS: DOCUSATE SODIUM/SENNA 50/8.6MG TAB PO SCH (20:27)
[2024-02-07] MEDS: EZETIMIBE 10 MG TAB PO SCH (20:30)
[2024-02-07] MEDS: ATORVASTATIN 40 MG TAB PO SCH (20:30)
[2024-02-07] MEDS ORDERED: NON-FORMULARY MEDICATION (Dapagliflozin Propanediol [Farxiga] 10 mg Tablet) PO SCH (21:00)
[2024-02-08] MEDS: POLYETHYLENE (MIRALAX) 17 GM PACK PO SCH (05:48)
[2024-02-08] MEDS: ASPIRIN 81 MG ECTAB PO SCH (08:19)
[2024-02-08] MEDS: LANTUS PER UNIT CHARGE SC SCH (08:25)
--- NOTE | 2024-02-08 08:29 | Discharge Summary ---
Date of Service February 08, 2024 Admission HPI Per Admitting Provider This is a 60-year-old male who presents for chronic persistent back and leg pain after failing course of nonoperative care is here for surgical intervention. Principal Diagnosis Lumbar spinal stenosis with neurogenic claudication Discharge Data Allergies Allergy/AdvReac Type Severity Reaction Status Date / Time No Known Allergies Allergy Verified 02/07/24 06:31 Consultations 02/07/24 09:51 Consult Hospitalist Routine Procedures Performed Operation Date: 02/07/24 07:45 Actual Procedures p L3-L4 Decompression, Spinal Cord Monitoring(Not Applicable) - Bakari Sampson DO Ordered Studies 02/07/24 07:45 FL lumbar spine 2-3V Routine Hospital Course (1) Neurogenic claudication due to lumbar spinal stenosis: Patient underwent lumbar decompression tolerated this well was taken to orthopedic for postoperative. Postop day 1 he is up in chair he has been ambulating. SARITHA drain decreasing. Good strength testing. Simply discharged home. Discharge orders instructions from the chart for further review. Total Time Total Time Spent Total Time Spent (In Minutes): 20 minutes Discharge Plan Discharge Items Patient Disposition: Home - Self-Care Reason For Visit: Lumbar Spine Pain, Spinal Stenosis Lumbar Region w Discharge Diagnosis: lumbar stenosis Activity: As commented below Non-emergency contact: Primary Care Provider Call non-emergency contact if: you have any medication questions Follow-up/Referrals: PCP,NO [Primary Care Provider] - Diet: Regular Addtl Attending Provider Instructions: ACTIVITY RECOMMENDATIONS: SELF CARE INSTRUCTIONS AFTER A LAMINECTOMY 1. No prolonged sitting (less than 30 minutes for the first 3 weeks after surgery). 2. No bending, lifting more than 5 pounds, or twisting (roll like a log when turning in bed). 3. You may shower 3 days after surgery if no drainage from wound. Thoroughly dry wound. Do not soak in the tub. 4. Please walk as much as you can for exercise. Gradually increase the distance that you walk as your endurance increases. 5. You may drive in 7-10 days if you are comfortable and no longer requiring pain medications. 6. You may return to previous diet. SPECIAL CARE INSTRUCTIONS: VERY IMPORTANT TO READ AND REVIEW A. Your surgical incision has been closed with a cosmetic suture under the skin that will dissolve in about 6 weeks. In 14 days, you can use a pair of clean scissors and cut the suture that is left outside of the skin at the ends of your incision. B. Complications are uncommon, but please contact us if you have any signs or symptoms of: 1. wound infection (fever higher than 102.5 degrees F, redness, separation of wound, drainage, or increasing pain from the incision) 2. blood clots in legs (pain, swelling, redness and warmth in legs) 3. urinary tract infection (fever higher than 102.5 degrees, burning upon urination or increased frequency of urination) 4. nerve problems (inability to walk on your toes or heels, numbness, loss of bowel or bladder control) 5. any other symptoms that concern you. C. Please call the office at if you have any concerns or questions about your operation or recovery. MANAGING PAIN AFTER SPINAL SURGERY 1. Narcotic medication is intended for short-term use and will be provided for surgical pain. Surgical pain usually lasts for a period of 4-6 weeks. Narcotic medication includes Percocet, Vicodin, Darvocet, Tylenol #3 or Lortab. 2. Longer-term pain is more appropriately treated with non-narcotic medication such as Tylenol ES. 3. Muscle spasm is not appropriately treated with narcotics. Muscle relaxers such as Soma, Flexeril or Skelaxin can be used along with Tylenol ES. 4. Remember that we all live with some "aches and pains". This is not unusual or uncommon after an injury or as we get older. 5. We will provide appropriate medication within the normal guidelines of their prescribed use. We will also be very cautious and aware of potential abuse and extended duration of patients' medication needs. 6. Please allow 2-3 days to process refills. Prescriptions will not be mailed but must be picked up at the office. FOLLOW UP VISIT: Keep your scheduled follow-up appointment. Any questions, please call the office at . Pending Studies at Discharge: No Stand-Alone Forms: My [facility] [employer], Smoking Cessation Medications and DC Order Prescriptions: New oxycodone 5 mg tablet 5 mg PO Q6H PRN (Reason: pain) Qty: 30 0RF Continued multivitamin Tablet 1 tab PO QAM atorvastatin 80 mg Tablet 80 mg PO PM carvedilol 12.5 mg Tablet 12.5 mg PO BID Rx Instructions: must administer with a meal/food venlafaxine 75 mg Tablet 75 mg PO QAM aspirin 81 mg Tablet,Delayed Release (Dr/Ec) 81 mg PO QAM tramadol 50 mg Tablet 100 mg PO BID acetaminophen 500 mg Tablet 1,000 mg PO BID PRN (Reason: Pain) gabapentin 800 mg Tablet 800 mg PO BID amlodipine 10 mg Tablet 10 mg PO QAM metformin 1,000 mg Tablet 1,000 mg PO BID vitamin B complex [Super B Complex] Tablet 1 tab PO QAM furosemide 20 mg Tablet 20 mg PO QAM lisinopril 40 mg Tablet 40 mg PO QAM Humalog U-100 Insulin 100 unit/mL Cartridge 1 sliding scale dose SUBCUT USEASDIRECTD Patient Comments: "I use the V-GO to administer and have a [place].come 2 system" ezetimibe 10 mg Tablet 10 mg PO HS topiramate 50 mg Tablet 50 mg PO BID cholecalciferol (vitamin D3) [Vitamin D3] 125 mcg (5,000 unit) Tablet 125 mcg PO QAM omega 7-zgt-ryy-fish oil [Fish Oil] 1,000 mg (120 mg-180 mg) Capsule 1 cap PO QPM dimethyl fumarate [Tecfidera] 240 mg Capsule,Delayed Release(Dr/Ec) 240 mg PO BID dapagliflozin propanediol [Farxiga] 10 mg Tablet 10 mg PO QPM Discharge Orders: Discharge Order (Routine); Ordered 02/08/24 Ordered By: Bakari Sampson Admission Data Admit Date/Time: 02/07/24 08:50 Attending Provider: Bakari Sampson Admit Provider: Bakari Sampson Primary Care Provider: PCP,NO Other Providers: Neva Olson
[2024-02-08] MEDS ORDERED: LANTUS PER UNIT CHARGE SC SCH (09:00)
[2024-02-08 11:08] VITALS: BP 165/81; PULSE 75; RESP 17; TEMP 98.4; O2SAT 93
--- NOTE | 2024-02-08 11:10 | Hospitalist Progress Note ---
Date of Service February 08, 2024 Assessment & Plan (1) Neurogenic claudication due to lumbar spinal stenosis: (2) S/P lumbar spine operation: Plan Yobani Tubbs is a 68y/o M with PMHx significant for DM type II, HTN, HLD, aortic stenosis, CAD s/p stenting in 2016, history of PE in the setting of COVID-19 infection in January 2020, multiple sclerosis, sleep apnea, depression/anxiety and morbid obesity who underwent routine elective L3-L4 decompression with Dr. Sampson on 02/07/2024. Our [facility] Medicine service was consulted for routine postoperative medical management. Neurogenic Claudication 2/2 Lumbar Spine Stenosis S/P Surgery: POD #1 s/p lumbar decompression with bilateral medial facetectomies with removal of epidural lipomatosis L3-L4 with Dr. Sampson on 02/07/2024. EBL: 100mL & Pre-Op Hgb: 13.6 [as of 12/06/2023] Per ortho for pain control, wound care, anticoagulation and activities. No repeat labs were done this morning therefore unsure of repeat H/H. Continue incentive spirometry, PT recommending home health services. CM consulted. CM was able to get the patient accepted with [facility] -> He is to be discharged home this afternoon. CAD/HTN/HLD: Can continue home medications including carvedilol/atorvastatin/aspirin/Lasix/lisinopril/ezetimibe. DM Type II: Hold home agents, basal/bolus regimen while inpatient. HH, CC diet. BSG checks ACHS. Most recent Hgb A1c was 7.3% on 12/06/2023. Glycemic pharmacy consulted by primary service. Multiple Sclerosis: Chronic, has been stable since 1997 - does not take any biological agents. Reports that his 3 children have varying degrees of MS. Morbid Obesity: BMI of 43 - will benefit from diet and exercise postoperatively, encouraged weight loss for wound healing/joint offloading. Sleep Apnea: Patient reports that he does not use CPAP at bedtime, no needs for baseline O2 during the day. Other Chronic Medical Conditions: Depression/anxiety --> Can continue all other home medications for these specific conditions. DVT Prophylaxis: SCDs/TEDs as per primary service. Code Status: FULL CODE PCP: NO PCP Disposition: Plan for the patient to be discharged home later this afternoon with home health services as per above. We will follow the patient with you during their hospital stay. You can reach a [facility] via Responsa. Patient seen in collaboration with Dr. Molina. Please see addendum. I spent a total of 30 minutes coordinating, documenting, and providing care for this patient excluding time spent in the performance of separately billed services. This included personally reviewing all current laboratories and imaging studies, medical reconciliation, outpatient chart review and discussion with specialists. This chart was completed in part utilizing Speech Voice Recognition Software. Grammatical errors, random word insertions, pronoun errors, and incomplete sentences are an occasional consequence of this system due to software limitations, ambient noise, and hardware issues. Any formal questions or concerns about the content, text, or information contained within the body of this dictation should be directly addressed to the provider for clarification. Admission and Anticipated Discharge Date Admission Date: February 07, 2024 Supervising Physician Co-Signing Physician Notes Patient seen and examined independently. Discussed the above provider. Is doing well postoperatively; does not complain of pain, voiding spontaneously. No bowel movements yet. Patient to be discharged by the primary team. I recommended routine follow-up with his primary care doctor. I have reviewed the advanced practitioner's documentation, and I agree with, and take responsibility for the plan of care I spent a total of 20 minutes coordinating, documenting, and providing care for this patient excluding time spent in the performance of separately billed services. All of the aforementioned completed while collaborating with the assigned advanced practitioner for a full treatment plan Subjective Patient seen and examined at bedside this morning. He reports good pain control. He ate breakfast this morning without any issue. He has been ambulating around the room with a walker. He mentions that Dr. Sampson was already in to see him this morning and is planning for discharge later on this afternoon. He is going to speak with case management regarding possible home health services as PT had recommended that. He denies any chest pain or SOB this morning. He has been urinating without issue. No bowel movement yet. Review of Systems Review of Systems: At least ten systems reviewed and negative, except as noted in the subjective section. Physical Exam Physical Exam: General: WD/WN, NAD, sitting up in chair at bedside, very pleasant, conversing appropriately. A+Ox3, euthymic affect. HEENT: Normocephalic, atraumatic. Conjunctivae normal, anicteric sclerae. External ear and nose normal, oropharynx normal. Respiratory: Normal respiratory effort, lungs clear to auscultation, no wheeze, rales, rhonchi. No accessory muscle use. Cardiovascular: Regular rate, rhythm, no murmur, normal peripheral pulses, no BLE edema. Vessels: No JVD. Abdomen/GI: Normal bowel sounds, soft, nontender, no hepatosplenomegaly. Extremities/Musculoskeletal: No cyanosis or clubbing, surgical dressing dry/intact, SARITHA drain x 1 with minimal serosanguineous output. Neurologic: No focal deficits, CN's II-XI not formally tested but appear grossly intact bilaterally. Skin: No rashes, normal color, warm/dry. Results & Data Results & Data Vital Signs (Past 12 Hours) Vital Signs Temp Pulse Resp BP Pulse Ox O2 Del Method O2 Flow Rate 02/08/24 11:07 36.9 C 75 17 165/81 H 93 Room Air 02/08/24 10:54 37.0 C 68 18 143/78 H 94 02/08/24 07:35 37.0 C 68 18 143/78 H 94 Room Air 02/08/24 02:45 36.8 C 71 18 116/68 96 Nasal Cannula 3.0
--- NOTE | 2024-02-08 12:24 | Pharmacy Report ---
Pharmacy Glycemic Short Note 2 - Date of Service February 08, 2024 - Glycemic Short BSG Results (Last 24 hours): 02/07/24 02/07/24 02/08/24 16:26 20:27 07:37 POC Glucose 203 H 187 H 248 H 02/08/24 11:36 POC Glucose 253 H OUTPATIENT ANTIDIABETIC REGIMEN: * Farxiga 10mg po daily * V-Go 40 (max 80 units of lispro daily) HbA1c 7.3% on 12/06/23 ASSESSMENT: 02/07: * BSGs elevated the last 24h: [id number]/dL. Received 40 units of basal X 1 yesterday and 22 units of bolus. * Tolerating diet. * Will adjust basal to BID to assist with titration, 25 units this AM. Plan for 25 units BID today given elevated fasting. Novolog tightened to 15/6. 02/06: * 68 year old male admitted 02/06 for L3-L4 lumbar decompression surgery (POD #0). Pharmacy was consulted for glycemic monitoring postop. * He was given dexamethasone 4mg iv x 1 preop. BSG this morning was 202mg/dL and herman to 207mg/dL at lunch time today. * As an outpatient, he receives 40 units of lispro insulin daily by continuous subcutaneous infusion via the V-Go 40. (also administers on-demand bolus doses via this device for mealtime coverage) * Since his BSG was already elevated postop and he received steroids, Lantus 40units SQ x 1 was ordered this afternoon. Tomorrow morning, lantus 20units bid will be started (equivalent to his home basal requirements). * Weight based bolus dosing (using adjusted body weight) with a stress between 2 and 3 was started with lunch today PLAN FOR INPATIENT GLYCEMIC CONTROL: * Hold outpatient diabetes medications * Basal insulin * Lantus 40 units SQ x 1 post op, then 25 units SQ bid starting 1112 AM * Bolus insulin * NovoLog per scale ACHS or Q6hrs while NPO * Goal Range: Low 110 mg/dL - High 140 mg/dL * Correction Factor: 15 mg/dL/unit * Nutritional / Prandial insulin per carb ratio of 1 unit per 6 grams CHO consumed
== END 2024-02-08 13:53 | disposition home health service (06) | DRG 516 ==
LOC: ASU 05:50 → INTOOBSV 08:50 → 3E 08:50